=== PATIENT | male | born 1995 | race Caucasian/White ===

== ENCOUNTER 2017-10-28 03:17 | Emergency (ER) | payer SELFPAY ==
[~2017-10-28] VITALS: Ht 175.3 cm; Wt 62.3 kg
[2017-10-28 03:23] VITALS: BP 141/82; TEMP 98
[2017-10-28 05:16] VITALS: PULSE 82
== END 2017-10-28 05:17 | disposition home or self-care (01) ==
LOC: COL.ER 03:17
DX: F41.9 Anxiety disorder, unspecified (principal); R06.02 Shortness of breath; R06.00 Dyspnea, unspecified

== ENCOUNTER 2018-05-15 19:53 | Emergency (ER) | payer BC ==
[~2018-05-15] VITALS: Ht 175.3 cm; Wt 61.4 kg
[2018-05-15 19:56] VITALS: BP 145/82; TEMP 97.9
[2018-05-15] MEDS ORDERED: AMOXICILLIN 8751 TAB PO (21:11)
[2018-05-15 21:19] VITALS: PULSE 90
== END 2018-05-15 21:20 | disposition home or self-care (01) ==
LOC: COL.ER 19:53
DX: J01.90 Acute sinusitis, unspecified (principal); R51 Headache; F41.9 Anxiety disorder, unspecified; F17.210 Nicotine dependence, cigarettes, uncomplicated